=== PATIENT | female | born 1970 | race Caucasian/White ===

== ENCOUNTER → 2018-07-21 | Outpatient (REF) | LOC: M SMT 11:19 | DX: Z00.00 Encounter for general adult medical examination without abnormal findings (principal) ==

== ENCOUNTER → 2019-06-16 | Outpatient (REF) ==
--- NOTE | 2019-06-16 20:34 | REP ---
Right hand series: Four views. History: Degenerative disease. Findings: Overall normal mineralization pattern is seen. There is minimal spurring at the first MCP joint. Bones, joints and soft tissues are otherwise radiographically normal. Impression: Minimal first MCP joint spurring. Otherwise negative radiographs of the right hand. Electronically Signed by Shivam Hernandez MD 06/16/2019 09:19 P
== END ==
LOC: M SMT 15:07
PROVIDERS: ATTEND Internal Medicine
DX: Z00.00 Encounter for general adult medical examination without abnormal findings (principal)